=== PATIENT | male | born 1970 | race Two or more races ===

== ENCOUNTER 2016-05-21 16:10 | Emergency (ER) | payer MEDICAID ==
[~2016-05-21] VITALS: Ht 165.1 cm; Wt 72.6 kg
[2016-05-21] MEDS ORDERED: LEVETIRACETAM (500MG) 500 MG in IV NS 0.9% 100 ML IV ONE (16:30)
[2016-05-21 16:33] LABS: BASOPHILS % (AUTO) 0.5 % (0.0-2.0); DIFF TOTAL % 100 %; EOSINOPHILS # (AUTO) 1.1 /CMM (0.0-0.7); EOSINOPHILS % (AUTO) 13.8 % (0.0-6.0); HEMATOCRIT 43 % (39-51); HEMOGLOBIN 14.1 g/dL (13.5-17.5); LYMPHOCYTES # (AUTO) 1.8 /CMM (0.8-4.8); LYMPHOCYTES % (AUTO) 24.1 % (20.0-44.0); MEAN CORPUSCULAR HEMOGLOBIN 29 PG (26.0-33.0); MEAN CORPUSCULAR HGB CONC 33 g/dl (31.0-36.0); MEAN CORPUSCULAR VOLUME 88 fL (80-96); MONOCYTES # (AUTO) 0.6 /CMM (0.1-1.30); MONOCYTES % (AUTO) 8.3 % (2.0-12.0); NEUTROPHILS # (AUTO) 4.1 /CMM (1.8-8.9); NEUTROPHILS % (AUTO) 53.3 % (43.0-81.0); PLATELET COUNT (AUTO) 277 /CMM (150-450); RED BLOOD CELL COUNT(AUTO) 4.88 MIL/uL (4.5-6.0); WHITE BLOOD COUNT (AUTO) 7.6 K/uL (4.3-11.0)
[2016-05-21 16:46] LABS: ANION GAP 19 (5-14); CALCIUM, SERUM 8.5 mg/dL (8.5-10.1); CARBON DIOXIDE 21 mmol/L (21-32); CHLORIDE 104 mmol/L (98-107); CREATININE 1.2 mg/dL (0.6-1.3); GFR 65 mL/min (>60); GLUCOSE 118 mg/dL (74-106); POTASSIUM 3.6 mmol/L (3.5-5.1); SODIUM SERUM 140 mmol/L (136-145); UREA NITROGEN, BLOOD 16 mg/dL (7-18)
[2016-05-21 16:50] LABS: INR 0.95 (0.87-1.13)
[2016-05-21] MEDS ORDERED: IV SET PRIMARY PUMP SET 1 EA INFUS.SET MC ONE (17:04)
[2016-05-21 18:55] VITALS: BP 134/71
== END 2016-05-21 18:55 | disposition home or self-care (01) ==
LOC: ER 16:12
DX: R56.9 Unspecified convulsions (principal); I10 Essential (primary) hypertension
CPT/HCPCS: 36415; 70450; 80048; 80185; 85025; 85730; 96365; 99285; A4606; J1953; J7030; Z7610

== ENCOUNTER 2016-06-22 19:27 | Emergency (ER) | payer MEDICAID ==
[~2016-06-22] VITALS: Ht 162.6 cm; Wt 63.5 kg
[2016-06-22 19:35] VITALS: BP 128/87
== END 2016-06-22 20:43 | disposition home or self-care (01) ==
LOC: ER 19:35
DX: H00.016 Hordeolum externum left eye, unspecified eyelid (principal)
CPT/HCPCS: 99283; A4606; Z7610

== ENCOUNTER 2017-01-20 12:02 | Emergency (ER) | payer MEDICAID ==
[~2017-01-20] VITALS: Ht 172.7 cm; Wt 63.5 kg
[2017-01-20 12:10] VITALS: BP 98/50
[2017-01-20] MEDS ORDERED: IBUPROFEN 400 MG TABLET ONE (13:27)
[2017-01-20] MEDS ORDERED: IBUPROFEN 400 MG TABLET PO ONE (13:30)
== END 2017-01-20 14:53 | disposition home or self-care (01) ==
LOC: ER 12:03
DX: S20.211A Contusion of right front wall of thorax, initial encounter (principal); G40.909 Epilepsy, unspecified, not intractable, without status epilepticus; Z90.49 Acquired absence of other specified parts of digestive tract; X58.XXXA Exposure to other specified factors, initial encounter; Y93.66 Activity, soccer; Y92.89 Other specified places as the place of occurrence of the external cause; Y99.9 Unspecified external cause status
CPT/HCPCS: 71100; 99284; A4606; Z7610